=== PATIENT | male | born 1980 | race Caucasian/White ===

== ENCOUNTER 2017-05-08 13:51 | Emergency (ER) | payer OTHER ==
[~2017-05-08] VITALS: Ht 180.3 cm; Wt 106.6 kg
[~2017-05-08 13:51] MED LIST: ACETAMINOPHEN500 MG PO; ALEVE220 MG PO; BENADRYL ALLERG25 MG PO; CLINDAMYCIN HC300 MG PO
--- NOTE | 2017-05-08 14:31 | EKG ---
[facility] [address] [facility] [place] [address] Signed Normal sinus rhythm Normal ECG No previous ECGs available Confirmed by MARLINE FERRERA MD ([id number]) on 05/08/2017 2:31:36 PM Electronically Signed By: MARLINE FERRERA MD 05/08/17 1431 PATIENT NAME: TEMO STAUFFER Electrocardiogram DATE OF : 82 PHYSICIAN: MARLINE FERRERA MD REPORT #: [id number] REPORT IS CONFIDENTIAL AND NOT TO BE RELEASED WITHOUT AUTHORIZATION
== END 2017-05-08 14:45 | disposition home or self-care (01) ==
LOC: ED 13:51
DX: R07.9 Chest pain, unspecified (principal); Z87.891 Personal history of nicotine dependence
CPT/HCPCS: 71010; 80048; 84484; 85025; 93005; 93010; 99284

== ENCOUNTER 2017-11-06 17:41 | Emergency (ER) | payer OTHER ==
[~2017-11-06] VITALS: Ht 180.3 cm; Wt 97.5 kg
== END 2017-11-06 18:15 | disposition home or self-care (01) ==
LOC: ED 17:41
DX: R20.8 Other disturbances of skin sensation (principal); Z87.891 Personal history of nicotine dependence
CPT/HCPCS: 99282

== ENCOUNTER 2018-03-10 12:34 | Emergency (ER) | payer MEDICAID ==
[~2018-03-10] VITALS: Ht 180.3 cm; Wt 99.8 kg
[2018-03-10] MEDS ORDERED: IBUPROFEN600 MG PO (13:26)
[2018-03-10] MEDS ORDERED: BACTRIM DS TAB1 EACH PO (13:26)
== END 2018-03-10 13:48 | disposition home or self-care (01) ==
LOC: ED 12:34
PROC: 0H9EXZZ Drainage of Left Lower Arm Skin, External Approach (ICD-10-PCS; principal; 2018-03-10)
DX: L02.414 Cutaneous abscess of left upper limb (principal); Z87.891 Personal history of nicotine dependence
CPT/HCPCS: 10060; 99283

== ENCOUNTER 2018-03-12 11:26 | Emergency (ER) | payer SELFPAY ==
[~2018-03-12] VITALS: Ht 180.3 cm; Wt 99.8 kg
[~2018-03-12 11:26] MED LIST changes: +BACTRIM DS TAB1 EACH PO; +IBUPROFEN600 MG PO
== END 2018-03-12 11:52 | disposition home or self-care (01) ==
LOC: ED 11:26
DX: Z48.817 Encounter for surgical aftercare following surgery on the skin and subcutaneous tissue (principal); Z87.891 Personal history of nicotine dependence
CPT/HCPCS: 99282

== ENCOUNTER 2018-07-03 11:37 | Emergency (ER) | payer SELFPAY ==
[~2018-07-03] VITALS: Ht 180.3 cm; Wt 108.9 kg
--- OUTSIDE RECORDS SUMMARY | ~2018-07-03 | XMS | Clinical Summary ---
Demographics + + + | Address | [address] | | | [place] [address] | + + + | Home Phone | | + + + | Preferred Language | Unknown | + + + | Marital Status | Single | + + + | Uatsdin Affiliation | Unknown | + + + | Race | Unknown | + + + | Ethnic Group | Unknown | + + + Author + + + | Author | [facility] | | | and [place] | + + + | Organization | [facility] | | | and [place] | + + + | Address | Unknown | + + + | Phone | Unavailable | + + + Support + + + + + | Name | Relationship | Address | Phone | + + + + + | Simon Bueno | [place] | [address] | | | | | [place] [address] | | + + + + + Care Team Providers + +------+ + | Care Inker Name | Role | Phone | + +------+ + | No, Unknownpcp | PP | | + +------+ + Allergies No Known Allergies Current Medications + + +-------+---------+------+------+-------+ | Prescription | Sig. | Disp. | Refills | Star | End | Statu | | | | | | t | Date | s | | | | | | Date | | | + + +-------+---------+------+------+-------+ | | | | | 05/1 | | Activ | | HYDROcodone-acetamin | | | | 5/20 | | e | | ophen (NORCO) 5-325 | | | | 17 | | | | mg per tablet | | | | | | | + + +-------+---------+------+------+-------+ | PROAIR HFA 108 (90 | | | | 05/1 | | Activ | | Base) MCG/ACT | | | | 5/20 | | e | | inhaler | | | | 17 | | | + + +-------+---------+------+------+-------+ | diphenhydrAMINE | Take 25 mg by mouth | | | | | Activ | | (BENADRYL) 25 MG | nightly as needed. | | | | | e | | capsule | | | | | | | + + +-------+---------+------+------+-------+ Active Problems + + + | Problem | Noted Date | + + + | Pleurisy | | + + + | Pneumothorax | | + + + Family History + + +------+ + | Medical History | Relation | Name | Comments | + + +------+ + | Cancer | | | skin cancer | + + +------+ + + +------+--------+ + | Relation | Name | Status | Comments | + +------+--------+ + Social History + + + +--------+ + | Tobacco Use | Types | Packs/Day | Years | Date | | | | | Used | | + + + +--------+ + | Former Smoker | Cigarettes | 3 | 10 | Quit: 01/15/2012 | + + + +--------+ + + +---+---+---+ | Smokeless Tobacco: | | | | | Never Used | | | | + +---+---+---+ + + +---------+ + | Alcohol Use | Drinks/We | oz/Week | Comments | | | ek | | | + + +---------+ + | Yes | 1 | 0.6 | | | | Standard | | | | | drinks or | | | | | | | | | | equivalen | | | | | t | | | + + +---------+ + + + + | Sex Assigned at | Date Recorded | | | | + + + | Not on file | | + + + Last Filed Vital Signs + + + + | Vital Sign | Reading | Time Taken | + + + + | Blood Pressure | - | - | + + + + | Pulse | 97 | 01/14/2017903 PDT | + + + + | Temperature | 36.6 C (97.9 F) | 01/14/2017903 PDT | + + + + | Respiratory Rate | 16 | 01/14/2017903 PDT | + + + + | Oxygen Saturation | 99% | 01/14/2017903 PDT | + + + + | Inhaled Oxygen | - | - | | Concentration | | | + + + + | Weight | 107.6 kg (237 lb 3.2 | 01/14/2017903 PDT | | | oz) | | + + + + | Height | 180.3 cm (5' 11") | 01/14/2017903 PDT | + + + + | Body Mass Index | 33.08 | 01/14/2017903 PDT | + + + + Plan of Treatment + + + + + | Health Maintenance | Due Date | Last Done | Comments | + + + + + | Vaccine: | | | | | Dtap/Tdap/Td (1 - | 1 | | | | Tdap) | | | | + + + + + | Vaccine: Influenza | | | | | (#1) | 8 | | | + + + + + Results Not on filefrom Last 3 Months Insurance + +--------+ +------+-------+---------+ | Payer | Benefi | Subscriber | Type | Phone | Address | | | t Plan | ID | | | | | | / | | | | | | | Group | | | | | + +--------+ +------+-------+---------+ | [employer] | COMMER | [id number] | PPO | | | | | CIAL | | | | | | | PPO | | | | | | | OTHER | | | | | + +--------+ +------+-------+---------+ + +--------+ +--------+ + + | Guarantor Name | Accoun | Relation to | Date | Phone | Billing Address | | | t Type | Patient | of | | | | | | | | | | + +--------+ +--------+ + + | TEMO VIDES | Person | Self [birth year] Home: | [address] | | | al/Fam | | 1980 | [phone] | [place] [address] | | | jose | | | [phone] | | + +--------+ +--------+ + +
--- OUTSIDE RECORDS SUMMARY | ~2018-07-03 | XMS | Clinical Summary ---
Demographics + + + | Address | [address] | | | [place] [address] | + + + | Home Phone | | + + + | Preferred Language | Unknown | + + + | Marital Status | Single | + + + | Denominational Affiliation | Unknown | + + + | Race | Unknown | + + + | Ethnic Group | Unknown | + + + Author + + + | Author | [facility] | + + + | Organization | [facility] | + + + | Address | Unknown | + + + | Phone | Unavailable | + + + Support + + +---------+ + | Name | Relationship | Address | Phone | + + +---------+ + | Det,Mes | ECON | Unknown | | + + +---------+ + | Ramonita Vides | ECON | Unknown | | + + +---------+ + | Leonides Bueno | ECON | Unknown | | + + +---------+ + | Angel Barba | ECON | Unknown | | + + +---------+ + Care Team Providers + +------+ + | Care Clinical Research Assistant Name | Role | Phone | + +------+ + PP | Unavailable | + +------+ + Allergies No Known Allergies Current Medications + + +-------+---------+------+------+-------+ | Prescription | Sig. | Disp. | Refills | Star | End | Statu | | | | | | t | Date | s | | | | | | Date | | | + + +-------+---------+------+------+-------+ | DiphenhydrAMINE | Take by mouth. | | | | | Activ | | HCl (BENADRYL PO) | | | | | | e | + + +-------+---------+------+------+-------+ | naproxen sodium | Take 220 mg by mouth | | | | | Activ | | (ANAPROX) 220 MG | 2 (two) times daily | | | | | e | | tablet | with meals. | | | | | | + + +-------+---------+------+------+-------+ Active Problems + + + | Problem | Noted Date | + + + | Gastroesophageal reflux disease without esophagitis | 10/22/2015 | + + + + + | Overview: Since 2003 no past EGD to r/o [facility] yet | + + Social History + +-------+ +--------+------+ | Tobacco Use | Types | Packs/Day | Years | Date | | | | | Used | | + +-------+ +--------+------+ | Current Every Day | | | | | | Smoker | | | | | + +-------+ +--------+------+ + + +---------+ + | Alcohol Use | Drinks/We | oz/Week | Comments | | | ek | | | + + +---------+ + | Yes | 0 | 0.0 | occasional | | | Standard | | | [...] + + + | Blood Pressure | 102/64 | 10/22/2015 8:47 AM PST | + + + + | Pulse | 110 | 10/22/2015 8:47 AM PST | + + + + | Temperature | 37 C (98.6 F) | 10/22/2015 8:47 AM PST | + + + + | Respiratory Rate | 16 | 10/22/2015 8:47 AM PST | + + + + | Oxygen Saturation | 96% | 10/22/2015 8:47 AM PST | + + + + | Inhaled Oxygen | - | - | | Concentration | | | + + + + | Weight | 113.2 kg (249 lb 9.6 | 10/22/2015 8:47 AM PST | | | oz) | | + + + + | Height | 180.3 cm (5' 11") | 10/22/2015 8:47 AM PST | + + + + | Body Mass Index | 34.81 | 10/22/2015 8:47 AM PST | + + + + Plan of Treatment + + + + + | Health Maintenance | Due Date | Last Done | Comments | + + + + + | Vaccine: | | | | | Dtap/Tdap/Td (1 - | 1 | | | | Tdap) | | | | + + + + + | Vaccine: | | | | | Pneumococcal 19-64 | 1 | | | | (PPSV23 only) Medium | | | | | Risk (1 of 1 - | | | | | PPSV23) | | | | + + + [...] | | | + +--------+ +------+-------+---------+ | HEALTHY OPTIONS | HEALTH | [id number] | HMO | | | | MEDICAID PLANS | Y | | | | | | | OPTION | | | | | | | S-COOR | | | | | | | DINATE | | | | | | | D CARE | | | | | + +--------+ [...] | Self [birth year] Home: | [address] | | | al/Fam | | 1980 | [phone] [place] | | | jose | | [phone] | + +--------+ +--------+ + +
[2018-07-03] MEDS ORDERED: ZITHROMAX250 MG PO (12:31)
== END 2018-07-03 12:37 | disposition home or self-care (01) ==
LOC: ED 11:37
DX: J40 Bronchitis, not specified as acute or chronic (principal); Z87.891 Personal history of nicotine dependence
CPT/HCPCS: 71046; 99283